=== PATIENT | female | born 1945 | race Two or more races ===

== ENCOUNTER → 2024-01-31 | Outpatient (BNVA) | payer MEDICARE, MEDICAID, SELFPAY | END | disposition home or self-care (01) | PROVIDERS: PCP Nurse Practitioner Family; Referring Provider Nurse Practitioner Family; Visit Provider Nurse Practitioner Family | DX: J18.9 Pneumonia, unspecified organism (principal) | CPT/HCPCS: 87804; 87811; 94640; 96372; 99214; A4216; J0696; J2919; J7614; A9270 ==

== ENCOUNTER → 2024-01-31 | Outpatient (CLI) | payer MEDICARE, MEDICAID, SELFPAY ==
--- NOTE | 2024-01-31 12:40 | XR_ITS ---
Examination: PA lateral chest 2 views TECHNIQUE: Upright PA lateral chest 2 views Exam date and time: January 31, 2024 1305 hours INDICATIONS: Coughing wheezing fever beginning one week ago. FINDINGS: Normal heart size Bibasilar bronchitis pattern Prominent osteopenia IMPRESSION: Bibasilar bronchitis pattern
== END | disposition home or self-care (01) ==
LOC: CDIM 12:08
PROVIDERS: PCP Nurse Practitioner Family; Referring Provider Nurse Practitioner Family; Visit Provider Nurse Practitioner Family
DX: R05.9 Cough, unspecified (principal); R06.2 Wheezing; R50.9 Fever, unspecified
CPT/HCPCS: 71046

== ENCOUNTER → 2024-02-01 | Outpatient (BNVA) | payer MEDICARE, MEDICAID, SELFPAY | END | disposition home or self-care (01) | PROVIDERS: PCP Nurse Practitioner Family; Referring Provider Nurse Practitioner Family; Visit Provider Nurse Practitioner Family | DX: Z71.2 Person consulting for explanation of examination or test findings (principal); J20.9 Acute bronchitis, unspecified | CPT/HCPCS: 94640; 99213; J7614; A9270 ==

== ENCOUNTER → 2024-02-15 | Outpatient (BNVA) | payer MEDICARE, MEDICAID, SELFPAY | END | disposition home or self-care (01) | PROVIDERS: PCP Nurse Practitioner Family; Referring Provider Nurse Practitioner Family; Visit Provider Nurse Practitioner Family | DX: Z00.01 Encounter for general adult medical examination with abnormal findings (principal); Z71.2 Person consulting for explanation of examination or test findings; E11.9 Type 2 diabetes mellitus without complications; E78.5 Hyperlipidemia, unspecified; Z12.11 Encounter for screening for malignant neoplasm of colon; E66.01 Morbid (severe) obesity due to excess calories; Z68.41 Body mass index [BMI] 40.0-44.9, adult | CPT/HCPCS: 99214 ==

== ENCOUNTER → 2024-03-21 | Outpatient (BNVA) | payer MEDICARE, MEDICAID, SELFPAY | END | disposition home or self-care (01) | PROVIDERS: PCP Nurse Practitioner Family; Referring Provider Nurse Practitioner Family; Visit Provider Nurse Practitioner Family | DX: E11.8 Type 2 diabetes mellitus with unspecified complications (principal) | CPT/HCPCS: 82948; 83036; 99214 ==

== ENCOUNTER → 2024-04-10 | Outpatient (BNVA) | payer MEDICARE, MEDICAID, SELFPAY | END | disposition home or self-care (01) | PROVIDERS: PCP Nurse Practitioner Family; Referring Provider Nurse Practitioner Family; Visit Provider Nurse Practitioner Family | DX: R06.02 Shortness of breath (principal); R06.2 Wheezing | CPT/HCPCS: 94640; 96372; 99214; J2919; J7614; A9270 ==

== ENCOUNTER → 2024-04-10 | Outpatient (CLI) | payer MEDICARE, MEDICAID, SELFPAY ==
--- NOTE | 2024-04-10 14:45 | XR_ITS ---
Examination: PA lateral chest 2 views TECHNIQUE: Upright PA lateral chest 2 views Exam date and time: April 10, 2024 1453 hours INDICATIONS: Coughing wheezing beginning 3 months ago. FINDINGS: Mild bibasilar pneumonia Normal heart size Increased AP dimension chest Mild kyphosis dorsal spine IMPRESSION: COPD Mild bibasilar pneumonia
== END | disposition home or self-care (01) ==
PROVIDERS: PCP Nurse Practitioner Family; Referring Provider Nurse Practitioner Family; Visit Provider Nurse Practitioner Family
DX: J18.9 Pneumonia, unspecified organism (principal); J44.9 Chronic obstructive pulmonary disease, unspecified
CPT/HCPCS: 71046

== ENCOUNTER → 2024-04-14 | Outpatient (BNVA) | payer MEDICARE, MEDICAID, SELFPAY | END | disposition home or self-care (01) | PROVIDERS: PCP Nurse Practitioner Family; Referring Provider Nurse Practitioner Family; Visit Provider Nurse Practitioner Family | DX: J18.9 Pneumonia, unspecified organism (principal); Z71.2 Person consulting for explanation of examination or test findings | CPT/HCPCS: 96372; 99214; A4216; J0696 ==

== ENCOUNTER → 2024-04-21 | Outpatient (CLI) | payer MEDICARE, MEDICAID, SELFPAY ==
--- NOTE | 2024-04-21 12:05 | XR_ITS ---
Examination: PA lateral chest 2 views TECHNIQUE: Upright PA lateral chest 2 views Exam date and time: April 21, 2024 at 12:07 PM INDICATIONS: Coughing congestion today. FINDINGS: Normal heart size Mild accentuation basilar bronchovascular markings. No lobar pneumonia Prominent osteopenia IMPRESSION: Basilar bronchitis pattern
== END | disposition home or self-care (01) ==
LOC: CDIM 11:37
PROVIDERS: PCP Nurse Practitioner Family; Referring Provider Nurse Practitioner Family; Visit Provider Nurse Practitioner Family
DX: R05.9 Cough, unspecified (principal)
CPT/HCPCS: 71046

== ENCOUNTER → 2024-04-25 | Outpatient (BNVA) | payer MEDICARE, MEDICAID, SELFPAY | END | disposition home or self-care (01) | PROVIDERS: PCP Nurse Practitioner Family; Referring Provider Nurse Practitioner Family; Visit Provider Nurse Practitioner Family | DX: F33.1 Major depressive disorder, recurrent, moderate (principal); F40.9 Phobic anxiety disorder, unspecified; F51.05 Insomnia due to other mental disorder; Z71.2 Person consulting for explanation of examination or test findings; J44.9 Chronic obstructive pulmonary disease, unspecified | CPT/HCPCS: 99213 ==

== ENCOUNTER → 2024-05-22 | Outpatient (BNVA) | payer MEDICARE, MEDICAID, SELFPAY | END | disposition home or self-care (01) | PROVIDERS: PCP Nurse Practitioner Family; Referring Provider Nurse Practitioner Family; Visit Provider Nurse Practitioner Family | DX: F32.1 Major depressive disorder, single episode, moderate (principal); Z12.31 Encounter for screening mammogram for malignant neoplasm of breast; Z13.820 Encounter for screening for osteoporosis; G47.00 Insomnia, unspecified; F41.9 Anxiety disorder, unspecified; F40.9 Phobic anxiety disorder, unspecified | CPT/HCPCS: 99214 ==

== ENCOUNTER 2024-05-28 08:34 | Emergency (ER) | payer MEDICARE, MEDICAID, SELFPAY ==
[2024-05-28 08:48] VITALS: BP 178/80; PULSE 86; RESP 22; TEMP 36.5; O2SAT 96; BMI 40.8
--- NOTE | 2024-05-28 09:08 | EDNOTE_ITS ---
ED SOB =RME/HPI General Chief Complaint: Shortness of Breath/Dyspnea Stated Complaint: SHORTNESS OF BREATH Time Seen by Provider: 05/28/24 08:43 Source: patient and family Arrival date/time: 05/28/24 08:34 78-year-old female with a history of COPD presents to the emergency department with complaints of shortness of breath and wheezing for the past 2 days. She reports using her nebulizer inhaler with mild relief. She also states she has run out of her prescribed maintenance inhaler medication. Denies chest pain, fever, cough, or phlegm production. No recent illness or sick contacts reported. Mode of arrival: ambulatory Limitations: no limitations Related Data Previous Rx's ?Medication ?Instructions ?Recorded atorvastatin 20 mg tablet 20 mg PO QDAY #90 tabs 02/16 blood sugar diagnostic (Blood #50 ea 03/21/24 Glucose Test strips) blood-glucose meter #1 ea 03/21/24 lancets 32 gauge #100 ea 03/21/24 albuterol sulfate 2.5 mg/3 mL 2.5 mg (3 mL) inhalation Q6H PRN 04/14/24 (0.083 %) solution for nebulization shortness of breat h or wheezing 30 days #360 mL albuterol sulfate 90 mcg/actuation 2 inh inhalation Q6 H PRN shortness 04/14/24 aerosol inhaler of breath or wheezing #8.5 g carie ipratropium bromide 0.02 % 2.5 ml inhalation Q6H PRN 0 04/14/24 solution for inhalation shortness of breath or wheez ing #150 mL ipratropium bromide 17 2 puff inhalation Q8H #12.9 grams 04/14/24 mcg/actuation HFA aerosol inhaler (Atrovent HFA) budesonide 160 mcg-glycopyr 9 2 inh inhalation BID 30 days #10.7 04/26/24 mcg-formot 4.8 mcg/actuation HFA grams inhaler (Breztri Aerosphere) trazodone 50 mg tablet 25 mg (1/2 x 50 mg) PO QDAY 04/26/24 insomnia #30 tabs lisinopril 20 mg tablet 20 mg PO QDAY #90 tabs 05/09 sitagliptin phos 100 mg-metformin 1 tab PO QDAY #90 ta bs 05/09/24 ER 1,000 mg tablet,extend rel 24h mp (Janumet XR) albuterol 90 mcg-budesonide 80 2 inh inhalation TID WI N shortness 05/28/24 mcg/actuation HFA aerosol inhaler of breath #10.7 gram s (Airsupra) albuterol sulfate 2.5 mg/3 mL 2.5 mg (3 mL) inhalation Q6H #180 05/28/24 (0.083 %) solution for nebulization mL amoxicillin 875 mg-potassium 1 tab PO BID 7 days #14 t abs 05/28/24 clavulanate 125 mg tablet ipratropium bromide 17 2 inh inhalation Q8H PRN vik rtness 05/28/24 mcg/actuation HFA aerosol inhaler of breath or wheezin g #12.9 grams Allergies Allergy/AdvReac Type Severity Reaction Status Date / Time No Known Allergies Allergy Verified 05/28/24 08:38 Review of Systems Review of Systems Systems Reviewed: All systems reviewed, normal except as documented Narrative Review of Systems: Gen: No fever, no chills, no weight loss EYES: No discharge, no visual changes, no pain HEENT: No ear pain, no congestion, no sore throat PULM: + shortness of breath, + cough, no congestion CV: No chest pain, no dyspnea on exertion, no palpitations GI: No nausea, no vomiting, no diarrhea, no pain, no constipation : No frequency, no urgency, no dysuria Musc/skel: No joint pain, no back pain Skin: No rash Psyc: No hallucinations, no depression Heme/Lymph: No easy bleeding or bruising tendencies Neuro: No weakness, no headache ED Exam General Limitations: Present no limitations General appearance: Present alert Head Head exam: Present atraumatic Eye Eye exam: Present normal appearance, PERRL and EOMI ENT ENT exam: Present normal exam, normal oropharynx and mucous membranes moist Neck Neck exam: Present normal inspection, full ROM and trachea midline Chest Chest inspection: Present normal inspection and symmetric chest wall rise Respiratory Respiratory exam: Present wheezes Expanded Respiratory Exam Location: Left: wheezes, Right: wheezes and Upper: wheezes Cardiovascular Cardiovascular exam: Present regular rate, normal rhythm and normal heart sounds Abdominal Exam Abdominal exam: Present soft and normal bowel sounds Extremities Exam Extremities exam: Present normal inspection and full ROM Back Exam Back exam: Present normal inspection and full ROM Neurological Exam Neurological exam: Present alert, oriented X3 and CN II-XII intact Psychiatric Psychiatric exam: Present normal affect and normal mood Skin Skin exam: Present warm, dry, intact and normal color Course Quality Measures none Orders Category Date Time Status XR chest 2V Stat Exams 05/28/24 09:07 Completed Albuterol/Ipratr Rt Kay [Duoneb Rt Kay] Med 05/28/24 09:05 Discontinued 3 ml INH X1 ONE predniSONE Med 05/28/24 09:07 Discontinued 60 mg PO X1 ONE Vital Signs Vital signs: Vital Signs Temperature 97.7 F 05/28/24 08:48 Pulse Rate 86 05/28/24 08:48 Respiratory Rate 22 H 05/28/24 08:48 Blood Pressure 178/80 H 05/28/24 08:48 Pulse Oximetry (%) 96 05/28/24 08:48 Oxygen Delivery Method Room Air 05/28/24 08:48 Shortness of Breath / Dyspnea MDM Narrative MDM Narrative:: COPD exacerbation, likely due to non-compliance with maintenance inhaler X-ray does demonstrate scarring versus pneumonia right middle lobe. Patient has not had any fever. However we will treat due to her risk factors for walking pneumonia. Plan: * Administer nebulizer treatment in ED * Gave oral steroids first dose * Gave Duoneb or albuterol/ipratropium Patient symptoms improved. And wheezing decreased. No signs of hypoxia. Origination and 98% I will refill patient's maintenance inhalers advised not to let medication run out. Advised to continue antibiotics * Discharge with close follow-up Patient data External records reviewed:: [facility] previous records Clinical information provided by:: patient and family Social determinants that could affect healthcare access:: none Patient has the following chronic illnesses:: COPD, diabetes, How is presenting disease/condition affected by chronic disease/condition?: exacerbated by Evaluation data The following diagnostics were reviewed and interpreted by me:: radiology exam(s) Lab and/or radiology exams considered but not ordered:: Laboratory. Interpretation Summary: Examination: PA lateral chest 2 views TECHNIQUE: Upright PA lateral chest 2 views Standing spine: May 28, 2024 0932 hours Comparison April 21, 2024 INDICATIONS: Shortness of breath today FINDINGS: Opacity obscuring detail right cardiac contour Minimal prominence left ventricle Ectatic thoracic aorta. No pulmonary edema IMPRESSION: Scarring versus pneumonia in the right middle lobe, the appearance should be clinically correlated Medications / Prescriptions Medications or Prescriptions considered but not ordered:: No Medication administrations:: Medication Administration History Discontinued Medications Albuterol/Ipratropium (Albuterol/Ipratropium (Duoneb) Rt Kay 3 Ml Nebu) 3 ml INH X1 ONE Stop: 05/28/24 09:06 Last Admin: 05/28/24 09:16 Dose: 3 ml Documented By: DEANDRE Prednisone (Prednisone 20 Mg Tablet) 60 mg PO X1 ONE Stop: 05/28/24 09:08 Last Admin: 05/28/24 10:15 Dose: 60 mg Documented By: LINDA All medications administered and effective Consultations Consultation(s) initiated? (list below): No Diagnosis Shortness of Breath Differential Diagnosis: acute exacerbation of chronic obstructive airways disease, community acquired pneumonia and asthma with exacerbation Most likely diagnosis given after review of the tests above:: COPD exacerbation, and pneumonia. Admission Indicated Admission indicated?: not indicated Admission Request Was there a request for admission?: No Disposition Plan Disposition Plan: Discharge Discharge Attestation Discharge Attestation: The patient and all family members were given an opportunity to ask questions and understood the discharge instructions. Discharge instructions specifically effects, indications for sooner follow up or return to the emergency department, and the expected course of current diagnosis. Patient condition: Stable Discharge Plan Plan Patient Disposition: HOME (Self Care) Prescriptions/Referrals Prescriptions/Med Rec: New Airsupra 90-80 mcg/actuation HFA aerosol inhaler 2 inh inhalation TID PRN (Reason: shortness of breath) Qty: 10.7 2RF ipratropium bromide 17 mcg/actuation HFA aerosol inhaler 2 inh inhalation Q8H PRN (Reason: shortness of breath or wheezing) Qty: 12.9 0RF Rx Instructions: administer with spacer amoxicillin-pot clavulanate 875-125 mg tablet 1 tab PO BID 7 Days Qty: 14 0RF albuterol sulfate 2.5 mg /3 mL (0.083 %) solution for nebulization 2.5 mg inhalation Q6H Qty: 180 0RF No Action (DME) Blood Glucose Test Strip See Rx Instructions .Route Qty: 50 3RF Rx Instructions: check blood sugar once a day (DME) lancets 32 gauge misc See Rx Instructions .Route Qty: 100 1RF Rx Instructions: check blood sugar once a day (DME) blood-glucose meter Misc See Rx Instructions .ROUTE .MEDSUPPLY Qty: 1 0RF Rx Instructions: As directed albuterol sulfate 2.5 mg /3 mL (0.083 %) solution for nebulization 2.5 mg inhalation Q6H PRN (Reason: shortness of breath or wheezing) 30 Days Qty: 360 2RF Rx Instructions: Directions in Nepali ipratropium bromide 0.02 % solution 2.5 ml inhalation Q6H PRN (Reason: shortness of breath or wheezing) Qty: 150 2RF Rx Instructions: Directions in Nepali albuterol sulfate 90 mcg/actuation HFA aerosol inhaler 2 inh inhalation Q6H PRN (Reason: shortness of breath or wheezing) Qty: 8.5 1RF Atrovent HFA 17 mcg/actuation HFA aerosol inhaler 2 puff inhalation Q8H Qty: 12.9 2RF trazodone 50 mg tablet 25 mg PO QDAY Qty: 30 0RF Breztri Aerosphere 160-9-4.8 mcg/actuation HFA aerosol inhaler 2 inh inhalation BID 30 Days Qty: 10.7 2RF atorvastatin 20 mg tablet 20 mg PO QDAY Qty: 90 0RF lisinopril 20 mg tablet 20 mg PO QDAY Qty: 90 0RF Janumet XR 100-1,000 mg tablet, ER multiphase 24 hr 1 tab PO QDAY Qty: 90 0RF Rx Instructions: Please deliver to patient's home Referrals: Amalia C PARTNER MARKETING MANAGER,Thalia Ferreira, PARTNER MARKETING MANAGER [Primary Care Provider] - In 1 week Problem List Clinical Impression: Acute exacerbation of chronic obstructive pulmonary disease Patient/Caregiver Discharge Instructions Education Materials: Asthma and COPD Additional Instructions: Aseg?rese de consultar con [place] m?dico de cabecera o cl?kenia en 2 d?as para recibir atenci?n de seguimiento. No deje que se le acaben los medicamentos, ya que los necesita para el mantenimiento de [place] EPOC. Regrese a urgencias ante cualquier empeoramiento de los s?ntomas o cualquier cambio en [place] estado. Please make sure you follow-up with your primary doctor or clinic in 2 days for follow-up care. Do not let your medications run out you need these for maintenance of your COPD. Return to the emergency department this any worsening symptoms change in condition. Print Language: Nepali Stand Alone Forms: Kayleigh Award Info., Patient Portal Info Letter PA/PHOTOGRAPHY SALES ASSOCIATE Supervising Physician ROBIN/REBECCA Supervising Physician: fabian
[2024-05-28 09:16] VITALS: PULSE 82; RESP 20; O2SAT 98
[2024-05-28] MEDS: ALBUTEROL/IPRATROPIUM (Duoneb) RT SOL 3 ML NEBU INH (09:16)
[2024-05-28] MEDS: predniSONE 20 MG TABLET 60 MG PO (10:15)
== END 2024-05-28 11:48 | disposition home or self-care (01) ==
PROVIDERS: Emergency Provider Emergency Medicine; PCP Nurse Practitioner Family
DX: J44.1 Chronic obstructive pulmonary disease with (acute) exacerbation (principal)
CPT/HCPCS: 71046; 94640; 99283; A9270; J7512

== ENCOUNTER → 2024-06-08 | Outpatient (CLI) | payer MEDICARE, MEDICAID, SELFPAY ==
--- NOTE | 2024-06-08 13:30 | XR_ITS ---
Examination: Screening digital mammography, bilateral Computer aided detection 3-D breast Tomosynthesis, bilateral Date and time of exam: June 08, 2024 1357 hours Compared to mammograms dating to April 12, 2015 Indication: Screening Technique: Nonmagnified MLO, CC views of the breasts to been obtained, reconstructed from 3-D Tomosynthesis images. R2 computer aided detection program utilized for evaluation of suspicious masses and/or abnormal calcifications. 3-D Tomosynthesis images obtained. Findings: Scattered areas of fibroglandular density Benign calcifications. No interval suspicious masses Impression: BI-RADS category II: Benign Findings. Recommend 1 year follow-up mammogram.
--- NOTE | 2024-06-08 13:45 | XR_ITS ---
Examination: Bone densitometry Date and time of exam:June 08, 2024 1419 hours INDICATIONS: Menopause age 41 diabetic Technique: Lumbar spine and hip total bone mineralization values of an calculated. Peak reference and age match control results have been displayed. Findings: Lumbar spine total bone mineralization is1.023 gm/cm2. This is 0.2 standard deviations below peak reference. This is 2.3 standard deviations above age-matched controls. Hip total bone mineralization is 0.875 gm/cm2 This is 0.7 standard deviations below peak reference. This is 1.3 standard deviations above age-matched controls Impression: There is normal mineralization based on lumbar spine measurements. There is osteoporosis based on hip measurements Lumbar mineralization is increased 1.5% compared with August 08, 2020 Hip mineralization is decreased 5.4% compared with August 08, 2020
== END | disposition home or self-care (01) ==
LOC: CDIM 13:42
PROVIDERS: Referring Provider Nurse Practitioner Family; Visit Provider Nurse Practitioner Family
DX: Z12.31 Encounter for screening mammogram for malignant neoplasm of breast (principal); R92.323 Mammographic fibroglandular density, bilateral breasts; R92.1 Mammographic calcification found on diagnostic imaging of breast; M81.0 Age-related osteoporosis without current pathological fracture
CPT/HCPCS: 77063; 77067; 77080

== ENCOUNTER → 2024-06-09 | Outpatient (BNVA) | payer MEDICARE, MEDICAID, SELFPAY | END | disposition home or self-care (01) | PROVIDERS: PCP Nurse Practitioner Family; Referring Provider Nurse Practitioner Family; Visit Provider Nurse Practitioner Family | DX: Z71.2 Person consulting for explanation of examination or test findings (principal); I10 Essential (primary) hypertension; E78.5 Hyperlipidemia, unspecified; E11.65 Type 2 diabetes mellitus with hyperglycemia | CPT/HCPCS: 99214 ==

== ENCOUNTER → 2024-06-15 | Outpatient (BNVA) | payer MEDICARE, MEDICAID, SELFPAY | END | disposition home or self-care (01) | PROVIDERS: PCP Nurse Practitioner Family; Referring Provider Nurse Practitioner Family; Visit Provider Nurse Practitioner Family | DX: Z71.2 Person consulting for explanation of examination or test findings (principal); M81.0 Age-related osteoporosis without current pathological fracture; Z23 Encounter for immunization | CPT/HCPCS: 90471; 90677; 99213; 99214; J90677 ==

== ENCOUNTER → 2024-07-07 | Outpatient (BNVA) | payer MEDICARE, MEDICAID, SELFPAY | END | disposition home or self-care (01) | PROVIDERS: PCP Nurse Practitioner Family; Referring Provider Nurse Practitioner Family; Visit Provider Nurse Practitioner Family | DX: E11.8 Type 2 diabetes mellitus with unspecified complications (principal); R06.02 Shortness of breath; R01.1 Cardiac murmur, unspecified; I10 Essential (primary) hypertension | CPT/HCPCS: 83036; 93005; 99214 ==

== ENCOUNTER → 2024-07-07 | Outpatient (CLI) | payer MEDICARE, MEDICAID, SELFPAY ==
--- NOTE | 2024-07-07 12:55 | XR_ITS ---
Examination: PA lateral chest 2 views TECHNIQUE: Upright PA lateral chest 2 views Exam date and time: July 07, 2024 1346 hours Comparison May 08, 2024 INDICATIONS: SOB on exertion this week. FINDINGS: Mild hyperexpansion Mild parenchymal disease posterior basal segment left lower lobe on the lateral view Prominent osteopenia IMPRESSION: Early pneumonia posterior basal segment left lower lobe
== END | disposition home or self-care (01) ==
LOC: CDIM 12:39
PROVIDERS: PCP Nurse Practitioner Family; Referring Provider Nurse Practitioner Family; Visit Provider Nurse Practitioner Family
DX: J18.9 Pneumonia, unspecified organism (principal)
CPT/HCPCS: 71046

== ENCOUNTER → 2024-08-21 | Outpatient (CLI) | payer MEDICARE, MEDICAID, SELFPAY ==
--- NOTE | 2024-08-21 15:07 | XR_ITS ---
Examination: Lumbar spine 3 views Technique one AP lateral coned lateral lower lumbar spine 3 views Date and time: August 21, 2024 1543 hours INDICATIONS: Patient fell 2 months ago with injury to lower back, lower back pain FINDINGS: Prominent osteopenia No acute lumbar fracture Prominent thoracolumbar spondylosis Diffuse [id number] lumbar degenerative disc disease IMPRESSION: No acute lumbar fracture
--- NOTE | 2024-08-21 15:07 | XR_ITS ---
Examination: Knee, left , 3 views Technique: Knee AP, lateral, oblique 3 views Date and time of exam: August 21, 2024 1519 hours INDICATIONS: Patient fell 2 months ago with injury of the knee, knee pain. FINDINGS: Moderate tricompartment osteoarthritis Prominent osteopenia No fracture or dislocation IMPRESSION: No fracture or dislocation
== END | disposition home or self-care (01) ==
PROVIDERS: PCP Nurse Practitioner Family; Referring Provider Nurse Practitioner Family; Visit Provider Nurse Practitioner Family
DX: M85.88 Other specified disorders of bone density and structure, other site (principal); M47.815 Spondylosis without myelopathy or radiculopathy, thoracolumbar region; M51.369 Other intervertebral disc degeneration, lumbar region without mention of lumbar back pain or lower extremity pain; M17.12 Unilateral primary osteoarthritis, left knee
CPT/HCPCS: 72100; 73562

== ENCOUNTER → 2024-08-21 | Outpatient (BNVA) | payer MEDICARE, MEDICAID, SELFPAY | END | disposition home or self-care (01) | PROVIDERS: PCP Nurse Practitioner Primary Care; Referring Provider Nurse Practitioner Primary Care; Visit Provider Nurse Practitioner Primary Care | DX: M54.32 Sciatica, left side (principal); M25.562 Pain in left knee | CPT/HCPCS: 96372; 99214; J1885 ==

== ENCOUNTER → 2024-09-14 | Outpatient (BNVA) | payer MEDICARE, MEDICAID, SELFPAY | END | disposition home or self-care (01) | PROVIDERS: PCP Nurse Practitioner Family; Referring Provider Nurse Practitioner Family; Visit Provider Nurse Practitioner Family | DX: Z71.2 Person consulting for explanation of examination or test findings (principal); E78.5 Hyperlipidemia, unspecified; M25.562 Pain in left knee; G89.29 Other chronic pain; E11.65 Type 2 diabetes mellitus with hyperglycemia | CPT/HCPCS: 99212; G0463 ==

== ENCOUNTER → 2024-09-22 | Outpatient (BNVA) | payer MEDICARE, MEDICAID, SELFPAY | END | disposition home or self-care (01) | PROVIDERS: PCP Nurse Practitioner Family; Referring Provider Nurse Practitioner Family; Visit Provider Nurse Practitioner Family | DX: G89.29 Other chronic pain (principal); M25.562 Pain in left knee | CPT/HCPCS: 99212; G0463 ==

== ENCOUNTER → 2024-10-23 | Outpatient (BNVA) | payer MEDICARE, MEDICAID, SELFPAY | END | disposition home or self-care (01) | PROVIDERS: PCP Nurse Practitioner Family; Referring Provider Nurse Practitioner Family; Visit Provider Nurse Practitioner Family | DX: M25.562 Pain in left knee (principal); E78.5 Hyperlipidemia, unspecified; E11.65 Type 2 diabetes mellitus with hyperglycemia; Z76.0 Encounter for issue of repeat prescription | CPT/HCPCS: 99214 ==

== ENCOUNTER → 2024-11-22 | Outpatient (BNVA) | payer MEDICARE, MEDICAID, SELFPAY | END | disposition home or self-care (01) | PROVIDERS: PCP Nurse Practitioner Family; Referring Provider Nurse Practitioner Family; Visit Provider Nurse Practitioner Family | DX: Z76.0 Encounter for issue of repeat prescription (principal); J44.9 Chronic obstructive pulmonary disease, unspecified | CPT/HCPCS: 99213 ==

== ENCOUNTER → 2024-12-22 | Outpatient (BNVA) | payer MEDICARE, MEDICAID, SELFPAY | END | disposition home or self-care (01) | PROVIDERS: PCP Nurse Practitioner Family; Referring Provider Nurse Practitioner Family; Visit Provider Nurse Practitioner Family | DX: E78.5 Hyperlipidemia, unspecified (principal); Z76.0 Encounter for issue of repeat prescription; Z23 Encounter for immunization; E11.65 Type 2 diabetes mellitus with hyperglycemia; J44.9 Chronic obstructive pulmonary disease, unspecified; I10 Essential (primary) hypertension | CPT/HCPCS: 90471; 90686; 99214 ==

== ENCOUNTER → 2025-01-17 | Outpatient (BNVA) | payer MEDICARE, MEDICAID, SELFPAY | END | disposition home or self-care (01) | PROVIDERS: PCP Nurse Practitioner Family; Referring Provider Nurse Practitioner Family; Visit Provider Nurse Practitioner Family | DX: F32.1 Major depressive disorder, single episode, moderate (principal) | CPT/HCPCS: 99213 ==